=== PATIENT | female | born 1970 | race Caucasian/White ===

== ENCOUNTER 2016-11-27 14:14 | Emergency (ER) | payer OTHER, MEDICARE | END 2016-11-27 18:04 | disposition home or self-care (01) | LOC: ER 14:14 | DX: S00.83XA Contusion of other part of head, initial encounter (principal); W20.8XXA Other cause of strike by thrown, projected or falling object, initial encounter; Y92.512 Supermarket, store or market as the place of occurrence of the external cause; F17.210 Nicotine dependence, cigarettes, uncomplicated; Z79.899 Other long term (current) drug therapy | CPT/HCPCS: 70450; 99283; 99283-25 ==

== ENCOUNTER 2017-03-12 17:05 | Emergency (ER) | payer MEDICARE, OTHER ==
[2017-03-12 19:07] LABS: BASO # 0.1 10_X3_uL (0.0-0.1); BASO % 0.7 % (0.1-1.2); EOS # 0.4 10_X3_uL (0.0-0.4); EOS % 4.5 % (0.7-5.8); GRAN # 5.2 10_X3_uL (1.6-6.1); GRAN % 59.1 % (34.0-71.1); HEMATOCRIT 43.6 % (34-45); HEMOGLOBIN 14.6 g/dL (11.2-15.7); LYMPH # 2.4 10_X3_uL (1.2-3.7); LYMPH % 27.6 % (19.3-51.7); MEAN CORPUSCULAR HEMOGLOBIN 30.1 pg (27.0-33.0); MEAN CORPUSCULAR HGB CONC 33.5 g/dL (32.0-36.0); MEAN CORPUSCULAR VOLUME 89.9 fL (79-95); MEAN PLATELET VOLUME 9.5 fl (7.5-11.5); MONO # 0.7 10_X3_uL (0.2-0.9); MONO % 8.1 % (4.7-12.5); PLATELET COUNT 221 x10_3/uL (182-369); RED BLOOD COUNT 4.85 x10_6/uL (3.9-5.2); RED CELL DISTRIBUTION WIDTH 14.3 % (11.7-14.4); WHITE BLOOD COUNT 8.8 x10_3/uL (4.0-10.0)
[2017-03-12 19:22] LABS: ALBUMIN 4.1 gm/dL (3.4-5.0); ALKALINE PHOSPHATASE 48 U/L (50-136); ALT/SGPT 11 U/L (3.5-33.9); AMYLASE 61 U/L (15.62-74.58); AST/SGOT 16 U/L (7.04-26.96); BLOOD UREA NITROGEN 9 mg/dL (7-18); CALCIUM 9.2 mg/dL (8.7-10.7); CARBON DIOXIDE 26 mmol/L (21-32); CREATININE 0.7 mg/dL (0.6-1.3); GLUCOSE,RANDOM 95 mg/dL (70-99); LIPASE 39 U/L (6.75-60.75); POTASSIUM 4.4 mmol/L (3.5-5.1); SODIUM 141 mmol/L (136-145); TOTAL PROTEIN 6.1 gm/dL (6.4-8.2)
[2017-03-12 19:25] LABS: BILIRUBIN,TOTAL < 0.15 mg/dL (0.0-1.0)
== END 2017-03-12 20:27 | disposition home or self-care (01) ==
LOC: ER 17:05
PROVIDERS: Emergency Medicine
DX: R10.13 Epigastric pain (principal); R11.0 Nausea; J44.9 Chronic obstructive pulmonary disease, unspecified; F17.210 Nicotine dependence, cigarettes, uncomplicated; Z79.899 Other long term (current) drug therapy
CPT/HCPCS: 36415; 80053; 82150; 83690; 85025; 93005; 96372; 99284-25